=== PATIENT | female | born 2005 | race Caucasian/White ===

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

== ENCOUNTER 2025-01-15 04:20 | Emergency (ER) | payer MEDICAID ==
[2025-01-15] MEDS: Take Home: Cyclobenzaprine 10 MG Tab, 4 Tab Pack PO ONE (04:40)
[2025-01-15] MEDS: Ketorolac 30 MG/ML SDV IM ONE (04:40)
== END 2025-01-15 04:45 | disposition home or self-care (01) ==
LOC: VM.ED 04:20
DX: M54.50 Low back pain, unspecified (principal); F17.200 Nicotine dependence, unspecified, uncomplicated
CPT/HCPCS: 96372; 99283; A9270-GY; J1885

== ENCOUNTER 2025-03-28 09:00 | Emergency (ER) | payer MEDICAID ==
[2025-03-28 09:28] LABS: PLATELET COUNT,PLT 292 x10^3/uL (130-400); RED BLOOD CELL COUNT 4.67 x10^6/uL (4.00-5.50); WHITE BLOOD CELL COUNT,WBC 8.4 x10^3/uL (4.0-10.0)
[2025-03-28 09:29] LABS: APPEARANCE,URINE SLIGHTLY CLOUDY (CLEAR); GLUCOSE,URINE NEGATIVE (NEGATIVE); OCCULT BLOOD,URINE NEGATIVE (NEGATIVE)
[2025-03-28] MEDS: Ondansetron 4 MG/2 ML SDV IVPUSH ONE (09:35)
[2025-03-28 09:42] LABS: A/G RATIO 1.32; ALANINE AMINOTRANSFERASE,ALT 19 U/L (14-59); ASPARTATE AMNIOTRANSFERASE,AST 15 U/L (15-37); BILIRUBIN TOTAL 0.4 mg/dL (0.2-1.0); BLOOD UREA NITROGEN,BUN 16 mg/dL (7-18); CARBON DIOXIDE,CO2 28 mmol/L (21-32); CHLORIDE,CL 105 mmol/L (98-107); CREATININE 0.9 mg/dL (0.55-1.02); EST CRCL DRUG DOSING (CG) 86.10 mL/min; GLUCOSE RANDOM 102 mg/dL (70-99); POTASSIUM,K 4.2 mmol/L (3.5-5.1); PROTEIN TOTAL,TP 7.2 g/dL (6.4-8.2); SODIUM,NA 141 mmol/L (136-145)
[2025-03-28 09:43] LABS: ESTIMATED GFR 94 mL/min (>=60)
[2025-03-28 09:49] LABS: BAND PERCENT MAN 3 % (0-6); EOSINOPHILS ABSOLUTE MAN 0.1 x10^3/uL (0.0-0.5); EOSINOPHILS PERCENT MAN 1 % (0-4); LYMPHOCYTES ABSOLUTE MAN 1.8 x10^3/uL (1.0-4.8); LYMPHOCYTES PERCENT MAN 22 % (25-50); MONOCYTES ABSOLUTE MAN 0.6 x10^3/uL (0.0-0.8); MONOCYTES PERCENT MAN 7 % (2-11); MYELOCYTE PERCENT MAN 1 % (0); NEUTROPHILS ABSOLUTE MAN 5.8 x10^3/uL (1.8-7.7); PLATELET COUNT ESTIMATE ADEQUATE; SEG NEUTROPHILS PERCENT MAN 66 % (50-80)
== END 2025-03-28 10:06 | disposition home or self-care (01) ==
LOC: SUPCPDRO 09:00 → VM.ED 09:00
DX: N80.9 Endometriosis, unspecified (principal); Z79.899 Other long term (current) drug therapy
CPT/HCPCS: 80053; 81003; 81025; 85025; 86140; 96374; 96375; 99284; J1171; J2405; 36415